=== PATIENT | female | born 1975 | race Caucasian/White ===

== ENCOUNTER 2020-10-17 13:42 | Emergency (ER) | payer OTHER ==
[2020-10-17 14:15] VITALS: BP 136/80; PULSE 95; TEMP 98.5; BMI 28.3
[2020-10-17] MEDS ORDERED: IBUPROFEN 400 MG TABLET (FP) PO ONE ×2 (15:09→15:21)
== END 2020-10-17 16:03 | disposition home or self-care (01) ==
LOC: JERFT 13:42
DX: M54.9 Dorsalgia, unspecified (principal)
CPT/HCPCS: 99283-25

== ENCOUNTER 2024-07-19 06:31 | Day surgery (SDC) | payer OTHER ==
[2024-07-15 15:59] VITALS: BMI 28.3
[2024-07-19] MEDS: ceFAZolin SODIUM 1 GM VIAL IVPB ONE
[2024-07-19] MEDS ORDERED: oxyCODONE HCL 5 MG TABLET PO PRN ×2 (07:39→09:54)
[2024-07-19] MEDS ORDERED: ONDANSETRON 4 MG/2 ML VIAL IVPUSH PRN ×2 (07:39→09:54)
[2024-07-19] MEDS ORDERED: DEXAMETHASONE SOD PHOSPHATE 4 MG/1 ML VIAL ONE (08:13)
[2024-07-19] MEDS ORDERED: MIDAZOLAM HCL 2 MG/2 ML SINGLE DOSE VIAL ONE (08:13)
[2024-07-19] MEDS ORDERED: KETOROLAC TROMETHAMINE 30 MG/1 ML VIAL ONE (08:13)
[2024-07-19] MEDS ORDERED: PROPOFOL 20 ML ONE (08:13)
[2024-07-19] MEDS ORDERED: LACTATED RINGERS SOLUTION 1,000 ML IV SCH (08:30)
[2024-07-19] MEDS ORDERED: IBUPROFEN 600 MG TABLET (FP) PO PRN (09:54)
[2024-07-19] MEDS ORDERED: IBUPROFEN 800 MG/8 ML IJ IVPB PRN (09:54)
[2024-07-19] MEDS ORDERED: ELECTROLYTE-148 SOLN 1,000 ML IV SCH (10:00)
[2024-07-19 10:58] VITALS: RESP 18
[2024-07-19 12:42] VITALS: BP 132/83; PULSE 56; TEMP 97.1
== END 2024-07-19 12:40 | disposition home or self-care (01) ==
LOC: JASU-SURG 06:31
PROVIDERS: ATTEND Obstetrics & Gynecology
PROC: 0UB98ZZ Excision of Uterus, Via Natural or Artificial Opening Endoscopic (ICD-10-PCS; principal; 2024-07-19 08:30)
DX: D25.0 Submucous leiomyoma of uterus (principal); N92.6 Irregular menstruation, unspecified
CPT/HCPCS: 81025; 88305-TC; 94760